=== PATIENT | male | born 1935 | race Caucasian/White ===

== ENCOUNTER 2017-03-12 05:17 | Observation (INO) | payer MEDICARE, BC ==
[~2017-03-12] VITALS: Ht 182.9 cm; Wt 103.5 kg
[2017-03-12] VITALS (11 sets, daily range): BP systolic 123–159; BP diastolic 54–77; PULSE 43–57; TEMP 97.2–98.5
[~2017-03-12 05:17] MED LIST: ADVIL200 MG PO; ASPIRIN 81M81 MG/TA2 PO; CEPHALEXIN500 M1 PO; CHONDROITIN SU400 MG PO; COZAAR 50MG50 MG/TAB PO; FLOMAX 0.40.4 MG/CAP PO; FOLIC ACID 40400 MCG PO; GLUCOSAMINE PO; NORCO 325 MG-7.1 TAB PO; PLAVIX 75MG TAB75 MG PO; TYLENOL W/COD1 UDTAB PO; VITAMIN C500 MG PO; ZOCOR 20MG20 MG PO
[2017-03-12] MEDS ORDERED: BRILINTA90 MG PO (06:51)
[2017-03-12] MEDS ORDERED: LOVENOX 100100 MG/ML SQ (06:53)
[2017-03-13] VITALS (7 sets, daily range): BP systolic 130–175; BP diastolic 58–80; PULSE 54–67; TEMP 98.2–98.5
[2017-03-14 01:40] VITALS: BP 138/71; PULSE 61; TEMP 97.9
[2017-03-14 03:58] VITALS: BP 132/64; PULSE 67; TEMP 97.9
[2017-03-14 10:20] VITALS: BP 153/63; PULSE 57; TEMP 98
== END 2017-03-14 14:30 | disposition home health service (06) ==
LOC: SDCO 05:17 → SURG 09:50 → SDCO 03-13 11:58 → SURG 03-13 11:59
DX: N40.1 Benign prostatic hyperplasia with lower urinary tract symptoms (principal); R31.0 Gross hematuria; N13.8 Other obstructive and reflux uropathy; R01.1 Cardiac murmur, unspecified; I10 Essential (primary) hypertension; I25.10 Atherosclerotic heart disease of native coronary artery without angina pectoris; Z79.01 Long term (current) use of anticoagulants; Z95.5 Presence of coronary angioplasty implant and graft; G89.29 Other chronic pain; M54.2 Cervicalgia; M19.90 Unspecified osteoarthritis, unspecified site; Z85.828 Personal history of other malignant neoplasm of skin; Z82.49 Family history of ischemic heart disease and other diseases of the circulatory system; Z82.3 Family history of stroke
CPT/HCPCS: OP; G0378; J0690; J2405; J2704; J2765; J3010; J3480; J7120

== ENCOUNTER → 2017-05-03 | Outpatient (CLI) | payer MEDICARE, BC ==
[~2017-05-03] MED LIST changes: +BRILINTA90 MG PO; +LOVENOX 100100 MG/ML SQ
== END ==
LOC: COL.RAD 08:55
DX: Z01.812 Encounter for preprocedural laboratory examination (principal); K86.2 Cyst of pancreas; M95.4 Acquired deformity of chest and rib; M43.17 Spondylolisthesis, lumbosacral region; Z98.890 Other specified postprocedural states; R93.5 Abnormal findings on diagnostic imaging of other abdominal regions, including retroperitoneum
CPT/HCPCS: Q9967

== ENCOUNTER 2017-09-03 13:49 | Inpatient (IN) | payer MEDICARE, BC ==
[~2017-09-03] VITALS: Ht 182.9 cm; Wt 102.4 kg
[2017-09-03] VITALS (7 sets, daily range): BP systolic 114–134; BP diastolic 56–64; PULSE 63–78; TEMP 97.6–98.6
[2017-09-03 18:06] LABS: ALBUMIN 3.2 gm/dL (3.5-5.0); BILIRUBIN,TOTAL 0.4 mg/dL (0.0-1.0); CALCIUM 8.4 mg/dL (8.4-10.2); CREATININE, serum 0.81 mg/dL (0.66-1.25); POTASSIUM 4.3 mmol/L (3.4-5.0); TOTAL PROTEIN 5.8 gm/dL (6.4-8.2)
[2017-09-03 18:16] LABS: BASO % 0.3 % (0.0-2.0); EOS # 0.2 (0.0-0.7); EOS % 2.8 % (0-4.0); GRAN % 65.6 % (42.2-75.2); LYMPH # 1.3 (1.2-3.4); MEAN CELL VOLUME 91 fl (80.0-100.0); MEAN CORPUSCULAR HGB CONC 31 g/dl (33.0-37.0); MEAN PLATELET VOLUME 9.4 fl (7.4-10.4); MONO # 0.6 (0.1-0.6); MONO % 9.6 % (1.7-9.3); PLATELET COUNT 141 K/mm3 (130-400); RED BLOOD COUNT 2.18 M/mm3 (4.20-5.60); REDCELL DISTRIBUTION WIDTH-CV 13.9 % (11.5-14.5)
[2017-09-03 18:23] LABS: HEMATOCRIT 19.8 % (42.0-52.0); HEMOGLOBIN 6.1 g/dl (13.5-18.0); MEAN CORPUSCULAR HEMOGLOBIN 28 pg (27.0-31.0)
[2017-09-04] VITALS (14 sets, daily range): BP systolic 107–142; BP diastolic 47–89; PULSE 58–74; TEMP 97.3–98.6
[2017-09-04 07:39] LABS: BASO % 0.2 % (0.0-2.0); EOS # 0.2 (0.0-0.7); EOS % 3.6 % (0-4.0); GRAN # 4.1 (1.4-6.5); GRAN % 70.8 % (42.2-75.2); LYMPH # 0.9 (1.2-3.4); LYMPH % 15.2 % (20.0-51.0); MEAN CELL VOLUME 90 fl (80.0-100.0); MEAN CORPUSCULAR HGB CONC 31 g/dl (33.0-37.0); MEAN PLATELET VOLUME 9.4 fl (7.4-10.4); MONO # 0.6 (0.1-0.6); MONO % 9.5 % (1.7-9.3); PLATELET COUNT 135 K/mm3 (130-400); RED BLOOD COUNT 2.38 M/mm3 (4.20-5.60); REDCELL DISTRIBUTION WIDTH-CV 14.4 % (11.5-14.5)
[2017-09-04 07:44] LABS: HEMATOCRIT 21.3 % (42.0-52.0); HEMOGLOBIN 6.5 g/dl (13.5-18.0); MEAN CORPUSCULAR HEMOGLOBIN 27 pg (27.0-31.0)
[2017-09-04 07:49] LABS: CREATININE, serum 0.78 mg/dL (0.66-1.25)
[2017-09-04 16:45] LABS: BASO % 0.4 % (0.0-2.0); EOS # 0.1 (0.0-0.7); EOS % 2.5 % (0-4.0); GRAN # 3.5 (1.4-6.5); GRAN % 66.6 % (42.2-75.2); LYMPH % 19.3 % (20.0-51.0); MEAN CELL VOLUME 90 fl (80.0-100.0); MEAN CORPUSCULAR HGB CONC 31 g/dl (33.0-37.0); MEAN PLATELET VOLUME 9.5 fl (7.4-10.4); MONO # 0.6 (0.1-0.6); MONO % 10.8 % (1.7-9.3); PLATELET COUNT 129 K/mm3 (130-400); RED BLOOD COUNT 2.67 M/mm3 (4.20-5.60); REDCELL DISTRIBUTION WIDTH-CV 14.3 % (11.5-14.5)
[2017-09-04 16:48] LABS: HEMATOCRIT 23.9 % (42.0-52.0); HEMOGLOBIN 7.4 g/dl (13.5-18.0); MEAN CORPUSCULAR HEMOGLOBIN 28 pg (27.0-31.0)
[2017-09-04 17:23] LABS: FOLATE (FOLIC ACID) 16.3 ng/mL (7.0-31.4)
[2017-09-04 22:13] LABS: BASO % 0.2 % (0.0-2.0); EOS # 0.2 (0.0-0.7); EOS % 3.5 % (0-4.0); GRAN # 3.7 (1.4-6.5); GRAN % 63.9 % (42.2-75.2); LYMPH # 1.2 (1.2-3.4); LYMPH % 21.5 % (20.0-51.0); MEAN CELL VOLUME 88 fl (80.0-100.0); MEAN CORPUSCULAR HGB CONC 32 g/dl (33.0-37.0); MEAN PLATELET VOLUME 9.7 fl (7.4-10.4); MONO # 0.6 (0.1-0.6); MONO % 10.6 % (1.7-9.3); PLATELET COUNT 130 K/mm3 (130-400); RED BLOOD COUNT 2.48 M/mm3 (4.20-5.60); REDCELL DISTRIBUTION WIDTH-CV 14.3 % (11.5-14.5)
[2017-09-04 22:16] LABS: HEMATOCRIT 21.9 % (42.0-52.0); HEMOGLOBIN 6.9 g/dl (13.5-18.0); MEAN CORPUSCULAR HEMOGLOBIN 28 pg (27.0-31.0)
[2017-09-05 03:11] VITALS: BP 115/58; PULSE 68; TEMP 97.8
[2017-09-05 06:46] LABS: BASO % 0.4 % (0.0-2.0); EOS # 0.2 (0.0-0.7); EOS % 3.7 % (0-4.0); GRAN % 69.3 % (42.2-75.2); MEAN CELL VOLUME 89 fl (80.0-100.0); MEAN CORPUSCULAR HGB CONC 31 g/dl (33.0-37.0); MEAN PLATELET VOLUME 9.6 fl (7.4-10.4); MONO # 0.5 (0.1-0.6); MONO % 9.1 % (1.7-9.3); PLATELET COUNT 124 K/mm3 (130-400); RED BLOOD COUNT 2.56 M/mm3 (4.20-5.60); REDCELL DISTRIBUTION WIDTH-CV 14.2 % (11.5-14.5)
[2017-09-05 06:54] LABS: HEMATOCRIT 22.8 % (42.0-52.0); HEMOGLOBIN 7.1 g/dl (13.5-18.0); MEAN CORPUSCULAR HEMOGLOBIN 28 pg (27.0-31.0)
[2017-09-05 06:56] LABS: CREATININE, serum 0.84 mg/dL (0.66-1.25); POTASSIUM 3.9 mmol/L (3.4-5.0)
[2017-09-05 07:59] VITALS: BP 139/53; PULSE 65; TEMP 98.2
[2017-09-05] MEDS ORDERED: PROTONIX 40MG T40 MG PO (10:58)
[2017-09-05] MEDS ORDERED: NATURAL IRON65 MG PO (10:59)
[2017-09-05] MEDS ORDERED: COLACE 100100 MG/CAP PO (10:59)
[2017-09-05 11:23] VITALS: BP 111/51; PULSE 60; TEMP 97.7
== END 2017-09-05 14:33 | disposition home or self-care (01) | DRG 378 ==
LOC: MEDICAL 13:49
PROVIDERS: Family Medicine; Nurse Practitioner Family; Surgery
PROC: 0DJD8ZZ Inspection of Lower Intestinal Tract, Via Natural or Artificial Opening Endoscopic (ICD-10-PCS; principal; 2017-09-04 09:00)
PROC: 0DJ08ZZ Inspection of Upper Intestinal Tract, Via Natural or Artificial Opening Endoscopic (ICD-10-PCS; 2017-09-04 09:00)
DX: K92.1 Melena (principal); D62 Acute posthemorrhagic anemia; I25.10 Atherosclerotic heart disease of native coronary artery without angina pectoris; I10 Essential (primary) hypertension; Z95.5 Presence of coronary angioplasty implant and graft; K29.30 Chronic superficial gastritis without bleeding; K57.30 Diverticulosis of large intestine without perforation or abscess without bleeding
CPT/HCPCS: 99222-AI; 99232-AI; 99239; J2250; J2704; J7030; P9016

== ENCOUNTER 2017-09-22 10:03 | Outpatient (RCR) | payer MEDICARE, BC ==
[~2017-09-22 10:03] MED LIST changes: +COLACE 100100 MG/CAP PO; +NATURAL IRON65 MG PO; +PROTONIX 40MG T40 MG PO
[2017-09-22 11:52] VITALS: BP 125/63; PULSE 60; TEMP 97.8
[2017-09-22 12:07] VITALS: BP 126/69; PULSE 60; TEMP 98
[2017-09-22 12:37] VITALS: BP 143/64; PULSE 61; TEMP 97.8
[2017-09-22 13:37] VITALS: BP 130/58; PULSE 61; TEMP 97.8
[2017-09-22 13:56] VITALS: BP 138/59; PULSE 64; TEMP 97.7
== END 2017-09-22 14:58 | disposition home or self-care (01) ==
LOC: EUO 10:03
DX: D50.9 Iron deficiency anemia, unspecified (principal)
CPT/HCPCS: J7050; P9016

== ENCOUNTER 2021-04-01 09:19 | Day surgery (SDC) | payer MEDICARE, BC ==
[~2021-04-01] VITALS: Ht 182.9 cm; Wt 101.8 kg
[2021-04-01] MEDS ORDERED: PLAVIX 75MG TAB75 MG PO (09:43)
[2021-04-01] MEDS ORDERED: ASPIRIN 81M81 MG/TA2 PO (09:44)
[2021-04-01] MEDS ORDERED: COZAAR100 MG PO (09:45)
[2021-04-01] MEDS ORDERED: CRESTOR20 MG PO (09:46)
[2021-04-01] MEDS ORDERED: TYLENOL 8 HR PO (09:47)
[2021-04-01] MEDS ORDERED: NORVASC 10MG10 MG PO (09:47)
[2021-04-01] MEDS ORDERED: MASON NATURAL2000 IU PO (09:48)
[2021-04-01 10:19] VITALS: BP 177/50; PULSE 66; TEMP 97.5
[2021-04-01 13:25] VITALS: BP 150/48; PULSE 56; TEMP 97.5
[2021-04-01 13:40] VITALS: BP 147/50; PULSE 50
[2021-04-01 13:55] VITALS: BP 154/54; PULSE 59
[2021-04-01 14:10] VITALS: BP 141/48; PULSE 48
--- NOTE | 2021-04-01 14:29 | NUR ---
1325: PATIENT ARRIVED BACK FROM PACU. PATIENT ALERT AND ORIENTED X4. MINIMAL TO NO PAIN. SCHULTZ CATHETER IN PLACE WITH RED TINTED URINE. AGREED TO TRY ORANGE JUICE AND TOAST. TOLERATED WELL WITH NO N/V.
--- NOTE | 2021-04-01 14:44 | NUR ---
1410: DISCUSSED SCHULTZ CARES WITH PATIENT, EDUCATED ON LEG BAG, WENT THROUGH DISCHARGE INFORMATION WITH PATIENT AND . [facility] ANSWERED, PATIENT AND VERBALIZED UNDERSTANDING TO INFORMATION. 1435: ESCORTED PATIENT OUT VIA WHEELCHAIR, ALONG. ALL BELONGINGS SENT WITH PATIENT.
== END 2021-04-01 14:35 | disposition home or self-care (01) ==
LOC: SDCO 09:19
DX: N99.113 Postprocedural anterior bulbous urethral stricture, male (principal); I10 Essential (primary) hypertension; E78.00 Pure hypercholesterolemia, unspecified; D64.9 Anemia, unspecified; I25.10 Atherosclerotic heart disease of native coronary artery without angina pectoris; M19.90 Unspecified osteoarthritis, unspecified site; M47.9 Spondylosis, unspecified; Z85.828 Personal history of other malignant neoplasm of skin; Z95.818 Presence of other cardiac implants and grafts; Z95.2 Presence of prosthetic heart valve; Z79.02 Long term (current) use of antithrombotics/antiplatelets; Z79.82 Long term (current) use of aspirin; Z79.899 Other long term (current) drug therapy; Z79.1 Long term (current) use of non-steroidal anti-inflammatories (NSAID)
CPT/HCPCS: C1769; C1894; J0690; J1100; J2405; J2704; J3010; J7120